=== PATIENT | female | born 2000 | race African-American/Black ===

== ENCOUNTER 2018-01-02 15:42 | Emergency (ER) | payer SELFPAY ==
[~2018-01-02] VITALS: Ht 165.1 cm; Wt 59.0 kg
[2018-01-02] MEDS ORDERED: SODIUM CHLORIDE 0.9% 1,000 ML IV ONE (16:29)
[2018-01-02] MEDS ORDERED: ONDANSETRON HCL 4MG/2ML VIAL IV STA (16:29)
[2018-01-02] MEDS ORDERED: MORPHINE SULFATE 4 MG/ML CPJ (NOT FOR IM USE) IV STA (16:29)
[2018-01-02 16:52] LABS: BASOPHILS % 0.3 % (0.0-2.0); EOSINOPHILS % 0.5 % (0.0-5.0); HEMATOCRIT. 39.4 % (36.0-48.0); HEMOGLOBIN. 12.8 g/dL (12.0-16.0); LYMPHOCYTES % 17.7 % (20.0-50.0); MEAN CORPUSCULAR HEMOGLOBIN 28.4 pg (28.0-32.0); MEAN CORPUSCULAR VOLUME 87.6 fL (81.0-99.0); MEAN PLATELET VOLUME 7.5 fl (7.4-10.4); MONOCYTES % 5.9 % (2.0-8.0); NEUTROPHILS % 75.6 % (40.0-76.0); PLATELET 283 x1000/uL (130-400); RED CELL DISTRIBUTION WIDTH 13.4 % (11.6-14.6)
[2018-01-02 16:54] LABS: CHLORIDE 105 mEq/L (98-107)
[2018-01-02 16:55] LABS: INR 1.1
[2018-01-02 17:05] LABS: CLARITY URINE CLOUDY (CLEAR); COLOR URINE YELLOW (YELLOW); KETONES URINE NEGATIVE (NEGATIVE); LEUKOCYTE ESTERASE URINE 2+ (NEGATIVE); NITRITE URINE NEGATIVE (NEGATIVE); OCCULT BLOOD URINE 3+ (NEGATIVE); PH URINE 5.5 (4.5-8.0); PROTEIN URINE 1+ (NEGATIVE); SPECIFIC GRAVITY URINE 1.016 (1.005-1.030); UROBILINOGEN URINE 0.2 E.U./dL (0.2-1.0)
[2018-01-02 17:32] LABS: HCG SCREEN NEGATIVE
[2018-01-02 19:55] VITALS: BP 122/69
== END 2018-01-02 20:10 | disposition home or self-care (01) ==
LOC: ER 16:14
DX: N30.90 Cystitis, unspecified without hematuria (principal); N23 Unspecified renal colic; R79.1 Abnormal coagulation profile
CPT/HCPCS: 36415; 74176; 80048; 81003; 83690; 84703; 85025; 85610; 87077; 87086; 87186; 96361; 96374; 96375; 99285; J2270; J2405; J7030; Z7610

== ENCOUNTER 2018-07-09 23:45 | Emergency (ER) | payer MEDICAID ==
[~2018-07-09] VITALS: Ht 167.6 cm; Wt 49.0 kg
[2018-07-10] MEDS ORDERED: SODIUM CHLORIDE 0.9% 1,000 ML IV ONE (04:39)
[2018-07-10] MEDS ORDERED: METOCLOPRAMIDE HCL 10MG/2ML VIAL IV ONE (04:45)
[2018-07-10 05:02] LABS: BASOPHILS % 0.5 % (0.0-2.0); EOSINOPHILS % 2.9 % (0.0-5.0); HEMOGLOBIN. 13.2 g/dL (12.0-16.0); LYMPHOCYTES % 28.4 % (20.0-50.0); MEAN CORPUSCULAR HEMOGLOBIN 28.8 pg (28.0-32.0); MEAN CORPUSCULAR VOLUME 87.4 fL (81.0-99.0); MEAN PLATELET VOLUME 7.5 fl (7.4-10.4); MONOCYTES % 9.9 % (2.0-8.0); NEUTROPHILS % 58.3 % (40.0-76.0); PLATELET 268 x1000/uL (130-400); RED BLOOD CELL COUNT 4.58 mill/uL (4.2-5.4); RED CELL DISTRIBUTION WIDTH 13.3 % (11.6-14.6)
[2018-07-10 05:11] LABS: CHLORIDE 107 mEq/L (98-107)
[2018-07-10 07:01] VITALS: BP 99/42
== END 2018-07-10 07:02 | disposition home or self-care (01) ==
LOC: ER 23:45
DX: B34.9 Viral infection, unspecified (principal); R51 Headache
CPT/HCPCS: 36415; 71045; 80053; 81025; 85025; 93005; 96374; 99285; J2765; J7030

== ENCOUNTER 2019-12-16 00:32 | Emergency (ER) | payer MEDICAID ==
[~2019-12-16] VITALS: Ht 162.6 cm; Wt 68.0 kg
[2019-12-16] MEDS ORDERED: MORPHINE SULFATE 4 MG/ML CPJ (NOT FOR IM USE) IV STA (00:47)
[2019-12-16] MEDS ORDERED: ONDANSETRON HCL 4MG/2ML INJ IV STA (00:47)
[2019-12-16] MEDS ORDERED: FENTANYL CITRATE/PF 50MCG/ML 2ML VIAL IV ONE (01:45)
[2019-12-16] MEDS ORDERED: PROPOFOL 200MG/20ML VIAL IV ONE (01:45)
[2019-12-16] MEDS ORDERED: ONDANSETRON HCL 4MG/2ML INJ IV ONE ×2 (01:45→02:45)
[2019-12-16] MEDS ORDERED: KETAMINE HCL 50 MG/ML 10ML IV ONE (02:45)
[2019-12-16] MEDS ORDERED: HYDROCODONE/ACETAMINOPHEN 10/325MG TABLET PO ONE (03:45)
[2019-12-16] MEDS ORDERED: LORAZEPAM 2MG/ML CPJ IV ONE (04:30)
[2019-12-16] MEDS ORDERED: KETOROLAC 30MG/ML VIAL IV ONE (05:45)
[2019-12-16 06:20] VITALS: BP 117/70
== END 2019-12-16 06:44 | disposition home or self-care (01) ==
LOC: ER 00:32
DX: S93.04XA Dislocation of right ankle joint, initial encounter (principal); M25.531 Pain in right wrist; V49.49XA Driver injured in collision with other motor vehicles in traffic accident, initial encounter; Y93.89 Activity, other specified; Y92.89 Other specified places as the place of occurrence of the external cause; Y99.8 Other external cause status; F12.10 Cannabis abuse, uncomplicated; Z91.018 Allergy to other foods
CPT/HCPCS: 27840; 71045; 73100; 73120; 73590; 73600; 96374; 96375; 96376; 99152; 99285; J1885; J2060; J2270; J2405; J2704; J3010; J3490

== ENCOUNTER 2020-03-29 15:31 | Emergency (ER) | payer MEDICAID ==
[~2020-03-29] VITALS: Ht 167.6 cm; Wt 72.0 kg
[2020-03-29] MEDS ORDERED: KETOROLAC 30MG/ML VIAL IM ONE (16:30)
[2020-03-29 16:32] VITALS: BP 124/84
== END 2020-03-29 17:02 | disposition home or self-care (01) ==
LOC: ER 15:31
DX: K08.89 Other specified disorders of teeth and supporting structures (principal); Z91.018 Allergy to other foods
CPT/HCPCS: 96372; 99283; J1885